=== PATIENT | female | born 1990 | race Caucasian/White ===

== ENCOUNTER 2019-11-04 05:39 | Day surgery (SDC) | payer BC, OTHER ==
[2019-11-02 10:19] LABS: HCG UR SG 1.023 (1.003-1.030)
[2019-11-02 10:21] LABS: BASOPHILS # (AUTO) 0.04 x10^3/uL (0-0.1); BASOPHILS % (AUTO) 1 % (0-1); EOSINOPHILS # (AUTO) 0.15 x10^3/uL (0-0.4); EOSINOPHILS % (AUTO) 3 % (1-7); LYMPHOCYTES # (AUTO) 1.31 x10^3/uL (1-3.4); LYMPHOCYTES % (AUTO) 25 % (22-44); MD NO; MEAN CORPUSCULAR HEMOGLOBIN 31.5 pg (27.0-34.8); MEAN CORPUSCULAR HGB CONC 33.8 g/dL (32.4-35.8); MEAN CORPUSCULAR VOLUME 93.1 fL (80-100); MEAN PLATELET VOLUME 8.3 fL (7.4-10.4); MONOCYTES # (AUTO) 0.49 x10^3/uL (0.2-0.8); MONOCYTES % (AUTO) 9 % (2-9); NEUTROPHILS # (AUTO) 3.37 x10^3/uL (1.8-6.8); NEUTROPHILS % (AUTO) 63 % (42-75); PLATELET COUNT 205 x10^3/uL (130-400); RED BLOOD COUNT 4.61 x10^6/uL (3.82-5.3); RED CELL DISTRIBUTION WIDTH 12.7 % (9.6-15.2)
[2019-11-02 10:30] LABS: ANION GAP 5 mmol/L (5-15); CALCIUM 8.8 mg/dL (8.5-10.1); CHLORIDE 110 mmol/L (98-107); CREATININE 0.72 mg/dL (0.55-1.02)
[~2019-11-04] VITALS: Ht 160 cm; Wt 60.7 kg
[~2019-11-04 05:39] MED LIST: HYDR25CA PO
[2019-11-04 06:39] VITALS: BP 101/67
[2019-11-04] MEDS ORDERED: CHLORHEXIDINE 15 ML UDC MM STA (06:52)
[2019-11-04] MEDS ORDERED: BUPIVACAINE/PF-EPI 0.25% 1:200K ONE (06:52)
[2019-11-04] MEDS ORDERED: METHYLENE BLUE 10 MG/ML 10ML ONE (06:53)
[2019-11-04] MEDS ORDERED: LACTATED RINGERS 1,000 ML IV SCH (06:54)
[2019-11-04] MEDS ORDERED: INDIGO CARMINE 0.8%, 5ML ONE (06:55)
[2019-11-04] MEDS ORDERED: CHLORHEXIDINE 15 ML UDC ONE (06:56)
[2019-11-04] MEDS ORDERED: FENTANYL PF 250 MCG/5ML ONE (07:14)
[2019-11-04] MEDS ORDERED: PROPOFOL 50 ML ONE (07:14)
[2019-11-04] MEDS ORDERED: MIDAZOLAM 1 MG/ML, 2ML ONE (07:14)
[2019-11-04] MEDS ORDERED: ROCURONIUM 10 MG/ML,10ML ONE (07:36)
[2019-11-04] MEDS ORDERED: KETOROLAC 30 MG/1 ML ONE (07:36)
[2019-11-04] MEDS ORDERED: DEXAMETHASONE 4 MG/ML, 1ML ONE (07:51)
[2019-11-04] MEDS ORDERED: ONDANSETRON 2MG/ML, 2ML ONE (07:51)
[2019-11-04] MEDS ORDERED: SUCCINYLCHOLINE 20 MG/ML, 10ML ONE (07:51)
[2019-11-04] MEDS ORDERED: DIPHENHYDRAMINE 50 MG/ML, 1ML IVPush PRN (08:00)
[2019-11-04] MEDS ORDERED: FENTANYL PF 100 MCG/2ML IV PRN (08:00)
[2019-11-04] MEDS ORDERED: OXYcodone 5 MG/5 ML ORAL.SOL UDC PO PRN (08:00)
[2019-11-04] MEDS ORDERED: EPHEDRINE 50 MG/ML, 1ML IVPush PRN (08:00)
[2019-11-04] MEDS ORDERED: ONDANSETRON 2MG/ML, 2ML IVPush PRN (08:00)
[2019-11-04] MEDS ORDERED: PROMETHAZINE 25 MG/ML, 1ML IVPush PRN (08:00)
[2019-11-04] MEDS ORDERED: HYDROmorphone 1 MG/ML, 1ML INJ IVPush PRN (08:00)
[2019-11-04] MEDS ORDERED: DIAZEPAM 5 MG/ML, 2ML IVPush PRN (08:00)
[2019-11-04] MEDS ORDERED: ACETAMINOPHEN 325 MG TABLET PO PRN (08:00)
[2019-11-04] MEDS ORDERED: EPHEDRINE 50 MG/ML, 1ML IM PRN (08:00)
[2019-11-04] MEDS ORDERED: MEPERIDINE/PF 25MG/0.5ML IVPush PRN (08:00)
[2019-11-04] MEDS ORDERED: SILVER NITRATE STICK TP ONE (08:56)
== END 2019-11-04 10:40 | disposition home or self-care (01) ==
LOC: OUT 05:39
PROVIDERS: ATTEND Obstetrics & Gynecology Gynecology
DX: N93.8 Other specified abnormal uterine and vaginal bleeding (principal); N84.0 Polyp of corpus uteri; N80.8 Other endometriosis; F41.9 Anxiety disorder, unspecified; F32.9 Major depressive disorder, single episode, unspecified; Z72.89 Other problems related to lifestyle; Z79.899 Other long term (current) drug therapy; Z98.890 Other specified postprocedural states
CPT/HCPCS: 36415; 58558; 58662; 80048; 81025; 85025; 88305; J0330; J1100; J1885; J2250; J2405; J2704; J3010; J7120; U0001; Q9968